=== PATIENT | male | born 1955 | race Caucasian/White ===

== ENCOUNTER 2024-09-23 04:12 | Inpatient (IN) | payer MEDICAID, MEDICARE ==
[2017-02-10 13:00] VITALS: TEMP 97.5
[2024-09-23] VITALS (86 sets, daily range): BP systolic 64–168; BP diastolic 42–132; PULSE 57–129; RESP 9–38; TEMP 36.3–36.7; O2SAT 94–100
[~2024-09-23] VITALS: Ht 177.8 cm; Wt 117.9 kg
[~2024-09-23 04:12] MED LIST: ASPI-1160 PO; LIP40 PO; METO25TA6 PO; XALAO BOTHEYE
[2024-09-23] MEDS: ONDANSETRON HCL 4MG/2ML INJ IV STA (04:29)
[2024-09-23 04:57] LABS: BG BASE EXCESS -2.7 mmol/L (-2.0-3.0); BG CARBOXYHEMOGLOBIN 1.7 % (0.5-1.5); BG DEOXYHEMOGLOBIN 3.1 % (0.0-5.0); BG FRACTION INSPIRED OXYGEN 50; BG HCO3 ACT 22.6 mmol/L (21.0-28.0); BG METHEMOGLOBIN 0.3 % (0.5-1.5); BG OXYGEN SATURATION 96.8 % (94.0-98.0); BG OXYHEMOGLOBIN 94.9 % (94.0-98.0); BG PCO2 41.4 mmHg (35.0-48.0); BG PH 7.355 (7.350-7.450); BG PO2 91.1 mmHg (83.0-108.0); BG SAMPLE SITE RIGHT RADIAL; BG TOTAL HEMOGLOBIN 10.5 g/dL (13.5-17.5); BG VENT MODE MASK - BIPAP; BG VENT RATE 24.0 set
[2024-09-23 05:20] LABS: HEMATOCRIT. 31.3 % (42.0-52.0); HEMOGLOBIN. 9.4 g/dL (14.0-18.0); MEAN PLATELET VOLUME 8.0 fl (7.4-10.4); PLATELET 194 x1000/uL (130-400); RED BLOOD CELL COUNT 3.69 mill/uL (4.7-6.1); RED CELL DISTRIBUTION WIDTH 20.8 % (11.6-14.6)
[2024-09-23 05:56] LABS: UREA NITROGEN BLOOD 38 mg/dL (9-23)
[2024-09-23 06:01] LABS: CREATININE 6.0 mg/dL (0.6-1.3)
[2024-09-23 06:02] LABS: TROPONIN I HIGH SENSITIVITY 84 ng/L (3.0-53)
[2024-09-23 06:03] LABS: LACTIC ACID 2.2 mmol/L (0.4-2.0)
[2024-09-23 07:17] LABS: TROPONIN I HIGH SENSITIVITY 82 ng/L (3.0-53)
[2024-09-23] MEDS: MIDODRINE HCL 5MG TABLET PO SCH (08:30)
[2024-09-23] MEDS ORDERED: ENOXAPARIN 40MG/0.4ML SYR SUBCUT SCH (08:45)
[2024-09-23] MEDS ORDERED: HYDRALAZINE 20MG/ML VIAL IV PRN (08:45)
[2024-09-23] MEDS ORDERED: GUAIFENESIN 200MG/10ML SUGAR FREE UDC PO PRN (08:45)
[2024-09-23] MEDS ORDERED: ACETAMINOPHEN 325MG TABLET PO PRN (08:45)
[2024-09-23] MEDS ORDERED: CLONIDINE 0.1MG TABLET PO PRN (08:45)
[2024-09-23] MEDS ORDERED: MAGNESIUM/ALUMINUM HYDROXIDE/SIMETHICONE 30ML UDC PO PRN (08:45)
[2024-09-23] MEDS ORDERED: APIXABAN 2.5 MG TABLET PO SCH (09:00)
[2024-09-23] MEDS ORDERED: ASPIRIN 81MG TABLET PO SCH (09:00)
[2024-09-23 09:14] LABS: BAND% 36.0 % (1.0-6.0); LYMPHOCYTES % MANUAL 3.0 % (20.0-50.0); MONOCYTES % MANUAL 3.0 % (2.0-8.0); NEUTROPHILS % MANUAL 58.0 % (45.0-75.0); PLATELET ESTIMATE NORMAL
[2024-09-23] MEDS: PHENYLEPHRINE 50MG/250ML PMX 250 ML IV PRN (09:32)
[2024-09-23] MEDS: PANTOPRAZOLE SODIUM 40 MG/VIAL IV SCH (11:03)
[2024-09-23] MEDS: SODIUM CHLORIDE 0.9% 250 ML IV ONE (11:04)
[2024-09-23] MEDS ORDERED: PIPERACILLIN/TAZO 3.375G/50ML 50 ML IV SCH (12:00)
[2024-09-23 12:35] LABS: TROPONIN I HIGH SENSITIVITY 85 ng/L (3.0-53)
[2024-09-23] MEDS: METOCLOPRAMIDE HCL 10MG/2ML VIAL IV SCH (13:01)
[2024-09-23] MEDS: PIPERACILLIN/TAZO 3.375G/50ML 50 ML IV SCH (13:02)
[2024-09-23] MEDS: VANCOMYCIN 2GM PMX (XELLIA) 400 ML IV SCH (13:02)
[2024-09-23 14:32] LABS: HEPATITIS A AB IGM NEGATIVE (Negative); HEPATITIS C AB NON REACTIVE (Neg) (Negative)
[2024-09-23 15:48] LABS: HEPATITIS B CORE AB IGM NEGATIVE (Negative)
[2024-09-23] MEDS ORDERED: LACTULOSE 20G/30ML UDC PO SCH (18:15)
[2024-09-23] MEDS ORDERED: DEXMEDETOMIDINE 400 MCG/100 ML 100 ML IV PRN ×2 (19:00→20:30)
[2024-09-23] MEDS: INSULIN LISPRO 100 UNITS/ML SUBCUT SCH (19:00)
[2024-09-23] MEDS ORDERED: BLOOD SUGAR DIAGNOSTIC STRIP TEST SCH ×2 (19:00)
[2024-09-23] MEDS ORDERED: DEXTROSE 50% WATER 50ML SYRINGE IV PRN (19:00)
[2024-09-23] MEDS ORDERED: ACETAMINOPHEN 650MG SUPP PR PRN (19:00)
[2024-09-23] MEDS ORDERED: PHENYLEPHRINE 50 MG in DEXT 5% WATER 245 ML IV PRN (19:15)
[2024-09-23] MEDS: DEXT 5%/0.9% NACL 1,000 ML IV SCH (19:20)
[2024-09-23] MEDS: NOREPINEPHRINE 8MG/250ML PMX 250 ML IV PRN (19:20)
[2024-09-23] MEDS ORDERED: PHENYLEPHRINE 50MG/250ML PMX 250 ML IV PRN ×2 (19:30→19:37)
[2024-09-23] MEDS ORDERED: CEFTRIAXONE 2GM/50ML 50 ML IV SCH (20:15)
[2024-09-23] MEDS ORDERED: VASOPRESSIN 20 UNIT in SODIUM CHLORIDE 0.9% 99 ML IV PRN (20:30)
[2024-09-23 20:33] LABS: HEMATOCRIT. 37.8 % (42.0-52.0); HEMOGLOBIN. 10.8 g/dL (14.0-18.0); MEAN PLATELET VOLUME 8.0 fl (7.4-10.4); PLATELET 102 x1000/uL (130-400); RED BLOOD CELL COUNT 4.27 mill/uL (4.7-6.1); RED CELL DISTRIBUTION WIDTH 21.7 % (11.6-14.6)
[2024-09-23 20:37] LABS: UREA NITROGEN BLOOD 31 mg/dL (9-23)
[2024-09-23 20:39] LABS: PHOSPHORUS 4.5 mg/dL (2.5-4.9)
[2024-09-23 20:45] LABS: CREATININE 5.4 mg/dL (0.6-1.3)
[2024-09-23] MEDS: ATORVASTATIN CALCIUM 10MG TABLET PO SCH (21:00)
[2024-09-23] MEDS: MIDODRINE HCL 5MG TABLET NG SCH (21:00)
[2024-09-23] MEDS ORDERED: LACTULOSE 20G/30ML UDC NG SCH (21:00)
[2024-09-23] MEDS: DEXMEDETOMIDINE 400 MCG/100 ML 100 ML IV PRN (21:05)
[2024-09-23 21:17] LABS: BAND% 26.0 % (1.0-6.0); LYMPHOCYTES % MANUAL 5.0 % (20.0-50.0); MONOCYTES % MANUAL 2.0 % (2.0-8.0); NEUTROPHILS % MANUAL 67.0 % (45.0-75.0); NUCLEATED RED BLOOD CELLS 1 /100 WBC
[2024-09-23 21:18] LABS: PLATELET ESTIMATE DECREASED
[2024-09-23] MEDS: FENTANYL CITRATE/PF 50MCG/ML 2ML VIAL IV SCH (21:31)
[2024-09-23] MEDS: VASOPRESSIN 20 UNIT in SODIUM CHLORIDE 0.9% 99 ML IV PRN (21:33)
[2024-09-23 23:02] LABS: BG BASE EXCESS -15.4 mmol/L (-2.0-3.0); BG CARBOXYHEMOGLOBIN 1.2 % (0.5-1.5); BG DEOXYHEMOGLOBIN 0.3 % (0.0-5.0); BG FRACTION INSPIRED OXYGEN 100; BG HCO3 ACT 12.9 mmol/L (21.0-28.0); BG METHEMOGLOBIN 0.3 % (0.5-1.5); BG OXYGEN SATURATION 99.7 % (94.0-98.0); BG OXYHEMOGLOBIN 98.2 % (94.0-98.0); BG PCO2 39.5 mmHg (35.0-48.0); BG PEEP (cmH2O) 5.0 cmH2O; BG PH 7.132 (7.350-7.450); BG PO2 354.3 mmHg (83.0-108.0); BG SAMPLE SITE ALINE; BG TIDAL VOLUME(mL) 500.0 mL; BG TOTAL HEMOGLOBIN 11.9 g/dL (13.5-17.5); BG VENT MODE VENT - AC; BG VENT RATE 20.0 set
[2024-09-24] VITALS (105 sets, daily range): BP systolic 112–148; BP diastolic 47–63; PULSE 69–135; RESP 16–45; TEMP 35–36.6696; O2SAT 75–100
[2024-09-24] MEDS: NOREPINEPHRINE 32 MG in DEXT 5% WATER 218 ML IV PRN (00:30)
[2024-09-24] MEDS: PHENYLEPHRINE 100 MG in DEXT 5% WATER 240 ML IV PRN (00:31)
[2024-09-24] MEDS: FENTANYL 2500MCG/250ML PMX 250 ML IV PRN (00:35)
[2024-09-24] MEDS: PANTOPRAZOLE SODIUM 40 MG/VIAL IV SCH ×2 (00:36→09:00)
[2024-09-24] MEDS: DEXTROSE 50% WATER 50ML SYRINGE IV PRN (00:52)
[2024-09-24] MEDS: LACTULOSE 20G/30ML UDC PO SCH ×2 (03:48→15:31)
[2024-09-24] MEDS: ACETAMINOPHEN 650MG/20.3ML UDC NG PRN (04:12)
[2024-09-24] MEDS: DEXT 10% WATER 1,000 ML IV SCH ×2 (05:32→11:13)
[2024-09-24 06:04] LABS: LACTIC ACID 6.8 mmol/L (0.4-2.0)
[2024-09-24 06:13] LABS: LDL CHOLESTEROL 9 mg/dL (5-100); TRIGLYCERIDE 150 mg/dL (0-150)
[2024-09-24 06:14] LABS: ASPARTATE AMINOTRANSFERASE 328 IU/L (<34); BILIRUBIN DIRECT 0.9 mg/dL (<=3.0); LACTATE DEHYDROGENASE 562 IU/L (120-246)
[2024-09-24 06:15] LABS: BILIRUBIN TOTAL 1.2 mg/dL (0.1-1.0); PROTEIN TOTAL 6.5 g/dL (6.0-8.3)
[2024-09-24 06:16] LABS: T4 FREE 0.92 ng/dL (0.89-1.76)
[2024-09-24] MEDS: BLOOD SUGAR DIAGNOSTIC STRIP TEST SCH ×5 (06:53→11:13)
[2024-09-24] MEDS: SODIUM BICARBONATE 8.4% 50MEQ/50ML SYR IV SCH ×3 (08:30→10:48)
[2024-09-24] MEDS ORDERED: PANTOPRAZOLE SODIUM 40 MG/VIAL IV SCH (09:00)
[2024-09-24] MEDS ORDERED: SODIUM BICARBONATE 8.4% 50MEQ/50ML SYR IV SCH (09:00)
[2024-09-24 09:04] LABS: HEMATOCRIT. 35.7 % (42.0-52.0); HEMOGLOBIN. 10.5 g/dL (14.0-18.0); MEAN PLATELET VOLUME 9.0 fl (7.4-10.4); PLATELET 69 x1000/uL (130-400); RED BLOOD CELL COUNT 4.14 mill/uL (4.7-6.1); RED CELL DISTRIBUTION WIDTH 21.2 % (11.6-14.6)
[2024-09-24 09:26] LABS: TRIGLYCERIDE 145 mg/dL (0-150); UREA NITROGEN BLOOD 40 mg/dL (9-23)
[2024-09-24 09:27] LABS: LDL CHOLESTEROL 9 mg/dL (5-100)
[2024-09-24 09:28] LABS: PHOSPHORUS 5.2 mg/dL (2.5-4.9); T4 FREE 0.95 ng/dL (0.89-1.76)
[2024-09-24 09:29] LABS: BILIRUBIN TOTAL 1.2 mg/dL (0.1-1.0)
[2024-09-24 09:32] LABS: CREATININE 5.7 mg/dL (0.6-1.3)
[2024-09-24 09:34] LABS: INR 3.4
[2024-09-24 10:13] LABS: BAND% 40.0 % (1.0-6.0); LYMPHOCYTES % MANUAL 4.0 % (20.0-50.0); MONOCYTES % MANUAL 6.0 % (2.0-8.0); NEUTROPHILS % MANUAL 50.0 % (45.0-75.0)
[2024-09-24 10:14] LABS: PLATELET ESTIMATE DECREASED
[2024-09-24] MEDS: CALCIUM CHLORIDE 1GM/10ML SYR IV SCH (10:50)
[2024-09-24] MEDS: SODIUM BICARBONATE 100 MEQ in DEXTROSE 5% WATER 900 ML IV SCH (11:12)
[2024-09-24] MEDS: PHYTONADIONE 10MG/ML INJ SUBCUT SCH (11:27)
[2024-09-24] MEDS ORDERED: METOPROLOL TARTRATE 5MG/5ML VIAL IV SCH (11:30)
[2024-09-24] MEDS ORDERED: CEFTRIAXONE 2GM/50ML 50 ML IV SCH (12:00)
[2024-09-24] MEDS: ACETAMINOPHEN 325MG TABLET PO SCH (13:02)
[2024-09-24] MEDS: SEVELAMER CARBONATE 800 MG TABLET PO SCH (13:02)
[2024-09-24 13:34] LABS: BG BASE EXCESS -16.6 mmol/L (-2.0-3.0); BG CARBOXYHEMOGLOBIN 1.0 % (0.5-1.5); BG DEOXYHEMOGLOBIN 0.3 % (0.0-5.0); BG FRACTION INSPIRED OXYGEN 100; BG HCO3 ACT 11.7 mmol/L (21.0-28.0); BG METHEMOGLOBIN 0.3 % (0.5-1.5); BG OXYGEN SATURATION 99.7 % (94.0-98.0); BG OXYHEMOGLOBIN 98.4 % (94.0-98.0); BG PCO2 36.6 mmHg (35.0-48.0); BG PEEP (cmH2O) 5.0 cmH2O; BG PH 7.123 (7.350-7.450); BG PO2 422.4 mmHg (83.0-108.0); BG TIDAL VOLUME(mL) 500.0 mL; BG TOTAL HEMOGLOBIN 11.3 g/dL (13.5-17.5); BG VENT MODE VENT - AC; BG VENT RATE 16.0 set
[2024-09-24] MEDS ORDERED: MEROPENEM 500MG/50ML IV SCH (14:00)
[2024-09-24] MEDS ORDERED: PIPERACILLIN/TAZO 3.375G/50ML 50 ML IV SCH (14:00)
[2024-09-24] MEDS ORDERED: MEROPENEM 1G/100ML 100 ML IV SCH (14:00)
[2024-09-24 14:29] LABS: TROPONIN I HIGH SENSITIVITY 3314.0 ng/L (3.0-53)
[2024-09-24] MEDS: ALBUTEROL (0.083%) 2.5MG/3ML NEB HHN SCH (14:42)
[2024-09-24] MEDS: AMIKACIN SULFATE 500 MG in SODIUM CHLORIDE 0.9% 100 ML IV SCH (15:31)
[2024-09-24] MEDS: MEROPENEM 1G/100ML 100 ML IV SCH (15:31)
[2024-09-24] MEDS: LACTOBACILLUS RHAMNOSUS GG CAP NG SCH (15:34)
[2024-09-24] MEDS: SODIUM BICARBONATE 100 MEQ in DEXT 5%/0.9% NACL 900 ML IV ONE (17:18)
[2024-09-24 17:26] LABS: PROTEIN BODY FLUID 4.8 gm/dL
[2024-09-24 17:37] LABS: BODY FLUID MONOCYTES 4 %
[2024-09-24 17:38] LABS: BODY FLUID RBC 1083 /cu mm (0-2000); BODY FLUID WBC 585 /cu mm (0-200)
[2024-09-24] MEDS: ALBUMIN HUMAN 25GM/100ML (25%) IV NR ×2 (18:24)
[2024-09-24 21:12] LABS: CREATINE KINASE MB FRACTION 68.6 ng/mL (0.5-3.6)
[2024-09-24 21:19] LABS: TROPONIN I HIGH SENSITIVITY 4521.0 ng/L (3.0-53)
[2024-09-25] VITALS (109 sets, daily range): BP systolic 142; BP diastolic 50; PULSE 84–133; RESP 13–48; TEMP 36.3–38.6; O2SAT 94–100
[2024-09-25 00:26] LABS: HEMATOCRIT. 31.0 % (42.0-52.0); HEMOGLOBIN. 9.5 g/dL (14.0-18.0); MEAN PLATELET VOLUME 8.5 fl (7.4-10.4); RED BLOOD CELL COUNT 3.71 mill/uL (4.7-6.1); RED CELL DISTRIBUTION WIDTH 20.8 % (11.6-14.6)
[2024-09-25] MEDS: BLOOD SUGAR DIAGNOSTIC STRIP TEST SCH (00:30)
[2024-09-25 00:32] LABS: BG BASE EXCESS -8.3 mmol/L (-2.0-3.0); BG CARBOXYHEMOGLOBIN 0.2 % (0.5-1.5); BG DEOXYHEMOGLOBIN 0.0 % (0.0-5.0); BG FRACTION INSPIRED OXYGEN 100; BG HCO3 ACT 17.6 mmol/L (21.0-28.0); BG METHEMOGLOBIN 0.3 % (0.5-1.5); BG OXYGEN SATURATION 100.0 % (94.0-98.0); BG OXYHEMOGLOBIN 99.5 % (94.0-98.0); BG PCO2 37.6 mmHg (35.0-48.0); BG PEEP (cmH2O) 5.0 cmH2O; BG PH 7.289 (7.350-7.450); BG PO2 314.2 mmHg (83.0-108.0); BG SAMPLE SITE ALINE; BG TIDAL VOLUME(mL) 500.0 mL; BG TOTAL HEMOGLOBIN 10.5 g/dL (13.5-17.5); BG VENT MODE VENT - AC; BG VENT RATE 22.0 set
[2024-09-25 00:32] LABS: PLATELET 33 x1000/uL (130-400)
[2024-09-25 00:36] LABS: UREA NITROGEN BLOOD 26 mg/dL (9-23)
[2024-09-25 00:37] LABS: CREATINE KINASE MB FRACTION 81.8 ng/mL (0.5-3.6)
[2024-09-25 00:38] LABS: PHOSPHORUS 3.4 mg/dL (2.5-4.9)
[2024-09-25 01:14] LABS: CREATININE 3.4 mg/dL (0.6-1.3)
[2024-09-25 01:24] LABS: TROPONIN I HIGH SENSITIVITY 4272.0 ng/L (3.0-53)
[2024-09-25 04:52] LABS: HEMATOCRIT. 31.9 % (42.0-52.0); HEMOGLOBIN. 9.6 g/dL (14.0-18.0); MEAN PLATELET VOLUME 8.6 fl (7.4-10.4); RED BLOOD CELL COUNT 3.77 mill/uL (4.7-6.1); RED CELL DISTRIBUTION WIDTH 21.1 % (11.6-14.6)
[2024-09-25 05:11] LABS: CREATININE 3.8 mg/dL (0.6-1.3)
[2024-09-25 05:12] LABS: LACTIC ACID 10.9 mmol/L (0.4-2.0)
[2024-09-25 05:13] LABS: CREATINE KINASE MB FRACTION 96.8 ng/mL (0.5-3.6); UREA NITROGEN BLOOD 29 mg/dL (9-23)
[2024-09-25 05:15] LABS: PHOSPHORUS 3.2 mg/dL (2.5-4.9)
[2024-09-25 05:20] LABS: TROPONIN I HIGH SENSITIVITY 4479.0 ng/L (3.0-53)
[2024-09-25] MEDS: DEXTROSE 50% WATER 50ML SYRINGE IV ONE (08:24)
[2024-09-25 10:53] LABS: BG BASE EXCESS -10.9 mmol/L (-2.0-3.0); BG CARBOXYHEMOGLOBIN 0.3 % (0.5-1.5); BG DEOXYHEMOGLOBIN 1.7 % (0.0-5.0); BG FRACTION INSPIRED OXYGEN 50; BG HCO3 ACT 15.4 mmol/L (21.0-28.0); BG METHEMOGLOBIN 0.3 % (0.5-1.5); BG OXYGEN SATURATION 98.3 % (94.0-98.0); BG OXYHEMOGLOBIN 97.7 % (94.0-98.0); BG PCO2 35.9 mmHg (35.0-48.0); BG PEEP (cmH2O) 5.0 cmH2O; BG PH 7.250 (7.350-7.450); BG PO2 123.8 mmHg (83.0-108.0); BG SAMPLE SITE ALINE; BG TIDAL VOLUME(mL) 500.0 mL; BG TOTAL HEMOGLOBIN 10.2 g/dL (13.5-17.5); BG VENT MODE VENT - AC; BG VENT RATE 22.0 set
[2024-09-25] MEDS: MAGNESIUM 2 G PREMIX 50 ML IV SCH (11:12)
[2024-09-25] MEDS: AMIODARONE 360MG/200ML 200 ML IV SCH (11:13)
[2024-09-25 14:10] LABS: BAND% 50.0 % (1.0-6.0); LYMPHOCYTES % MANUAL 1.0 % (20.0-50.0); METAMYELOCYTES % 8.0 % (0-0); MONOCYTES % MANUAL 6.0 % (2.0-8.0); MYELOCYTES % 1.0 % (0-0); NEUTROPHILS % MANUAL 34.0 % (45.0-75.0); NUCLEATED RED BLOOD CELLS 2 /100 WBC
[2024-09-25 14:11] LABS: PLATELET ESTIMATE MARKEDLY DECREASED
[2024-09-25 14:12] LABS: PLATELET 29 x1000/uL (130-400)
[2024-09-25 14:48] LABS: LYMPHOCYTES % MANUAL 3.0 % (20.0-50.0); MONOCYTES % MANUAL 4.0 % (2.0-8.0); NEUTROPHILS % MANUAL 93.0 % (45.0-75.0); NUCLEATED RED BLOOD CELLS 7 /100 WBC
[2024-09-25 14:49] LABS: PLATELET ESTIMATE DECREASED
[2024-09-25] MEDS: MEROPENEM 500MG/50ML 50 ML IV SCH (15:13)
[2024-09-25 18:29] LABS: INFLUENZA TYPE A Presumptive Negative (Pres. Neg.)
[2024-09-25 18:30] LABS: INFLUENZA TYPE B Presumptive Negative (Pres. Neg.)
[2024-09-25 18:31] LABS: RESPIRATORY SYNCYTIAL VIRUS Not Detected (Not Detectd)
[2024-09-25] MEDS: SODIUM BICARBONATE 150 MEQ in DEXTROSE 5% WATER 850 ML IV SCH (18:37)
[2024-09-25] MEDS: ACETAMINOPHEN 325MG TABLET PO PRN (21:40)
[2024-09-26] VITALS (102 sets, daily range): BP systolic 91–146; BP diastolic 46–66; PULSE 77–142; RESP 14–33; TEMP 36.55848–38.7; O2SAT 10–100
[2024-09-26 05:42] LABS: HEMATOCRIT. 28.1 % (42.0-52.0); HEMOGLOBIN. 8.9 g/dL (14.0-18.0); MEAN PLATELET VOLUME 10.1 fl (7.4-10.4); RED BLOOD CELL COUNT 3.48 mill/uL (4.7-6.1); RED CELL DISTRIBUTION WIDTH 21.1 % (11.6-14.6)
[2024-09-26] MEDS: MIDODRINE HCL 5MG TABLET PO SCH (05:44)
[2024-09-26 05:56] LABS: INR 2.0
[2024-09-26 06:03] LABS: CREATININE 4.1 mg/dL (0.6-1.3); UREA NITROGEN BLOOD 34 mg/dL (9-23)
[2024-09-26 06:04] LABS: ASPARTATE AMINOTRANSFERASE > 1000 IU/L (<34)
[2024-09-26 06:05] LABS: BILIRUBIN TOTAL 2.9 mg/dL (0.1-1.0); PROTEIN TOTAL 4.8 g/dL (6.0-8.3)
[2024-09-26 06:15] LABS: PLATELET 19 x1000/uL (130-400)
[2024-09-26] MEDS: INSULIN LISPRO 100 UNITS/ML SUBCUT SCH (06:20)
[2024-09-26] MEDS: BLOOD SUGAR DIAGNOSTIC STRIP TEST SCH ×2 (06:21→16:14)
[2024-09-26 08:47] LABS: BG BASE EXCESS -4.7 mmol/L (-2.0-3.0); BG CARBOXYHEMOGLOBIN 1.3 % (0.5-1.5); BG DEOXYHEMOGLOBIN 1.5 % (0.0-5.0); BG FRACTION INSPIRED OXYGEN 40; BG HCO3 ACT 19.8 mmol/L (21.0-28.0); BG METHEMOGLOBIN 0.3 % (0.5-1.5); BG OXYGEN SATURATION 98.5 % (94.0-98.0); BG OXYHEMOGLOBIN 96.9 % (94.0-98.0); BG PCO2 34.1 mmHg (35.0-48.0); BG PEEP (cmH2O) 5.0 cmH2O; BG PH 7.381 (7.350-7.450); BG PO2 114.0 mmHg (83.0-108.0); BG SAMPLE SITE ALINE; BG TIDAL VOLUME(mL) 500.0 mL; BG TOTAL HEMOGLOBIN 9.4 g/dL (13.5-17.5); BG TOTAL RESPIRATORY RATE 23 b/min; BG VENT MODE VENT - AC; BG VENT RATE 22.0 set
[2024-09-26] MEDS ORDERED: PIPERACILLIN/TAZO 3.375G/50ML 50 ML IV SCH (09:00)
[2024-09-26] MEDS: QUETIAPINE FUMARATE 50MG TABLET PO SCH (09:04)
[2024-09-26 09:55] LABS: BAND% 38.0 % (1.0-6.0); LYMPHOCYTES % MANUAL 2.0 % (20.0-50.0); METAMYELOCYTES % 11.0 % (0-0); MONOCYTES % MANUAL 3.0 % (2.0-8.0); NEUTROPHILS % MANUAL 46.0 % (45.0-75.0); NUCLEATED RED BLOOD CELLS 1 /100 WBC
[2024-09-26 09:56] LABS: PLATELET ESTIMATE MARKEDLY DECREASED
[2024-09-26] MEDS: CEFAZOLIN 1000MG PREMIX 50 ML IV SCH (15:38)
[2024-09-26] MEDS: AMIODARONE 360MG/200ML 200 ML IV SCH (15:38)
[2024-09-26] MEDS ORDERED: VANCOMYCIN 500MG PREMIX 100 ML IV SCH (21:00)
[2024-09-27] VITALS (100 sets, daily range): BP systolic 82–127; BP diastolic 45–75; PULSE 74–107; RESP 18–29; TEMP 36.3–38.9; O2SAT 91–100
[2024-09-27 05:28] LABS: HEMATOCRIT. 26.3 % (42.0-52.0); HEMOGLOBIN. 8.5 g/dL (14.0-18.0); MEAN PLATELET VOLUME 11.2 fl (7.4-10.4); RED BLOOD CELL COUNT 3.31 mill/uL (4.7-6.1); RED CELL DISTRIBUTION WIDTH 20.5 % (11.6-14.6)
[2024-09-27 05:32] LABS: CREATININE 3.5 mg/dL (0.6-1.3); UREA NITROGEN BLOOD 29 mg/dL (9-23)
[2024-09-27 05:34] LABS: ASPARTATE AMINOTRANSFERASE 934 IU/L (<34); BILIRUBIN DIRECT 2.9 mg/dL (<=3.0); BILIRUBIN TOTAL 3.7 mg/dL (0.1-1.0); PROTEIN TOTAL 4.8 g/dL (6.0-8.3)
[2024-09-27 05:47] LABS: INR 1.5
[2024-09-27 07:17] LABS: PLATELET 38 x1000/uL (130-400)
[2024-09-27 09:01] LABS: BG BASE EXCESS 0.9 mmol/L (-2.0-3.0); BG CARBOXYHEMOGLOBIN 1.3 % (0.5-1.5); BG DEOXYHEMOGLOBIN 0.9 % (0.0-5.0); BG FRACTION INSPIRED OXYGEN 40; BG HCO3 ACT 23.6 mmol/L (21.0-28.0); BG METHEMOGLOBIN 0.3 % (0.5-1.5); BG OXYGEN SATURATION 99.1 % (94.0-98.0); BG OXYHEMOGLOBIN 97.5 % (94.0-98.0); BG PCO2 31.6 mmHg (35.0-48.0); BG PEEP (cmH2O) 5.0 cmH2O; BG PH 7.491 (7.350-7.450); BG PO2 134.6 mmHg (83.0-108.0); BG SAMPLE SITE ALINE; BG TIDAL VOLUME(mL) 500.0 mL; BG TOTAL HEMOGLOBIN 11.8 g/dL (13.5-17.5); BG VENT MODE VENT - AC; BG VENT RATE 22.0 set
[2024-09-27] MEDS: METOCLOPRAMIDE HCL 10MG/2ML VIAL IV SCH (12:43)
[2024-09-27 13:17] LABS: BAND% 28.0 % (1.0-6.0); LYMPHOCYTES % MANUAL 1.0 % (20.0-50.0); METAMYELOCYTES % 1.0 % (0-0); MONOCYTES % MANUAL 6.0 % (2.0-8.0); NEUTROPHILS % MANUAL 64.0 % (45.0-75.0); NUCLEATED RED BLOOD CELLS 4 /100 WBC
[2024-09-27 13:18] LABS: PLATELET ESTIMATE MARKEDLY DECREASED
[2024-09-28] VITALS (104 sets, daily range): PULSE 76–102; RESP 18–29; TEMP 36.2–37.2; O2SAT 82–100
[2024-09-28 05:42] LABS: HEMATOCRIT. 26.1 % (42.0-52.0); HEMOGLOBIN. 8.4 g/dL (14.0-18.0); RED BLOOD CELL COUNT 3.27 mill/uL (4.7-6.1); RED CELL DISTRIBUTION WIDTH 20.6 % (11.6-14.6)
[2024-09-28 05:56] LABS: CREATININE 3.6 mg/dL (0.6-1.3)
[2024-09-28 05:57] LABS: UREA NITROGEN BLOOD 31 mg/dL (9-23)
[2024-09-28 05:59] LABS: PHOSPHORUS 1.3 mg/dL (2.5-4.9)
[2024-09-28 07:17] LABS: MONOCYTES % MANUAL 7.0 % (2.0-8.0); NEUTROPHILS % MANUAL 93.0 % (45.0-75.0); NUCLEATED RED BLOOD CELLS 1 /100 WBC
[2024-09-28 07:20] LABS: MEAN PLATELET VOLUME 11.1 fl (7.4-10.4)
[2024-09-28 07:21] LABS: PLATELET 31 x1000/uL (130-400); PLATELET ESTIMATE MARKEDLY DECREASED
[2024-09-28 07:26] LABS: LYMPHOCYTES % MANUAL 0.0 % (20.0-50.0)
[2024-09-28] MEDS: POTASSIUM PHOSPHATE 30 MMOL in DEXT 5% WATER 490 ML IV SCH (17:01)
[2024-09-29] VITALS (98 sets, daily range): PULSE 77–115; RESP 18–29; TEMP 36.3–39.3; O2SAT 92–100
[2024-09-29] MEDS ORDERED: DEXTROSE 50% WATER 50ML SYRINGE IV PRN (04:45)
[2024-09-29 04:57] LABS: HEMATOCRIT. 25.7 % (42.0-52.0); HEMOGLOBIN. 8.2 g/dL (14.0-18.0); RED BLOOD CELL COUNT 3.26 mill/uL (4.7-6.1); RED CELL DISTRIBUTION WIDTH 20.2 % (11.6-14.6)
[2024-09-29] MEDS: INSULIN LISPRO 100 UNITS/ML SUBCUT SCH (05:15)
[2024-09-29 05:28] LABS: CREATININE 4.2 mg/dL (0.6-1.3)
[2024-09-29 05:29] LABS: UREA NITROGEN BLOOD 40 mg/dL (9-23)
[2024-09-29 05:30] LABS: ASPARTATE AMINOTRANSFERASE 319 IU/L (<34)
[2024-09-29 05:31] LABS: BILIRUBIN DIRECT 3.6 mg/dL (<=3.0); BILIRUBIN TOTAL 4.6 mg/dL (0.1-1.0); PROTEIN TOTAL 4.8 g/dL (6.0-8.3)
[2024-09-29] MEDS: BLOOD SUGAR DIAGNOSTIC STRIP TEST SCH (06:55)
[2024-09-29 08:18] LABS: BAND% 15.0 % (1.0-6.0); EOSINOPHILS % MANUAL 1.0 % (0.0-5.0); LYMPHOCYTES % MANUAL 7.0 % (20.0-50.0); MONOCYTES % MANUAL 4.0 % (2.0-8.0); NEUTROPHILS % MANUAL 73.0 % (45.0-75.0); NUCLEATED RED BLOOD CELLS 1 /100 WBC
[2024-09-29 08:21] LABS: PLATELET ESTIMATE MARKEDLY DECREASED
[2024-09-29 08:23] LABS: MEAN PLATELET VOLUME 9.1 fl (7.4-10.4)
[2024-09-29 08:25] LABS: PLATELET 29 x1000/uL (130-400)
[2024-09-29] MEDS: IPRATROPIUM/ALBUTEROL 0.5-3(2.5)MG/3ML NEB HHN PRN (12:40)
[2024-09-30] VITALS (100 sets, daily range): BP systolic 92–152; BP diastolic 42–62; PULSE 56–106; RESP 16–27; TEMP 36.114–37.1; O2SAT 92–100
[2024-09-30] MEDS: INSULIN LISPRO 100 UNITS/ML SUBCUT SCH (00:23)
[2024-09-30 05:41] LABS: INR 1.5
[2024-09-30 05:42] LABS: HEMATOCRIT. 26.0 % (42.0-52.0); HEMOGLOBIN. 8.2 g/dL (14.0-18.0); MEAN PLATELET VOLUME 9.2 fl (7.4-10.4); RED BLOOD CELL COUNT 3.29 mill/uL (4.7-6.1); RED CELL DISTRIBUTION WIDTH 21.0 % (11.6-14.6)
[2024-09-30 05:58] LABS: UREA NITROGEN BLOOD 47 mg/dL (9-23)
[2024-09-30 05:59] LABS: CREATININE 4.6 mg/dL (0.6-1.3)
[2024-09-30 06:01] LABS: ASPARTATE AMINOTRANSFERASE 215 IU/L (<34); BILIRUBIN DIRECT 4.2 mg/dL (<=3.0)
[2024-09-30 06:02] LABS: BILIRUBIN TOTAL 5.1 mg/dL (0.1-1.0); PHOSPHORUS 3.7 mg/dL (2.5-4.9); PROTEIN TOTAL 4.9 g/dL (6.0-8.3)
[2024-09-30 06:21] LABS: PLATELET 33 x1000/uL (130-400)
[2024-09-30 07:59] LABS: BAND% 13.0 % (1.0-6.0); LYMPHOCYTES % MANUAL 5.0 % (20.0-50.0); MONOCYTES % MANUAL 4.0 % (2.0-8.0); NEUTROPHILS % MANUAL 78.0 % (45.0-75.0)
[2024-09-30 08:05] LABS: PLATELET ESTIMATE MARKEDLY DECREASED
[2024-09-30] MEDS: MIDODRINE HCL 5MG TABLET PO SCH (08:08)
[2024-09-30] MEDS ORDERED: MORPHINE SULFATE 250 MG in DEXT 5% WATER 240 ML IV PRN (17:30)
[2024-09-30] MEDS: MORPHINE SULFATE 250 MG in DEXT 5% WATER 250 ML IV PRN (18:53)
[2024-10-01] VITALS (62 sets, daily range): BP systolic 119; BP diastolic 47; PULSE 0–97; RESP 0–22; TEMP 36.3–36.9; O2SAT 91–100
[2024-10-01 04:47] LABS: RED BLOOD CELL COUNT 3.46 mill/uL (4.7-6.1); RED CELL DISTRIBUTION WIDTH 21.0 % (11.6-14.6)
[2024-10-01 05:04] LABS: CREATININE 3.8 mg/dL (0.6-1.3); UREA NITROGEN BLOOD 37.0 mg/dL (9-23)
[2024-10-01 07:41] LABS: PLATELET 52 x1000/uL (130-400)
== END 2024-10-01 16:34 | DRG 870 ==
LOC: ER 04:12 → 5EST 04:42 → ENRESERV 06:19 → MICUSO 09:09
PROVIDERS: ADMIT Internal Medicine; ATTEND Internal Medicine
PROC: 5A1955Z Respiratory Ventilation, Greater than 96 Consecutive Hours (ICD-10-PCS; principal; 2024-09-23)
PROC: 0BH17EZ Insertion of Endotracheal Airway into Trachea, Via Natural or Artificial Opening (ICD-10-PCS; 2024-09-23)
PROC: 02HV33Z Insertion of Infusion Device into Superior Vena Cava, Percutaneous Approach (ICD-10-PCS; 2024-09-23)
PROC: B548ZZA Ultrasonography of Superior Vena Cava, Guidance (ICD-10-PCS; 2024-09-23)
PROC: 5A12012 Performance of Cardiac Output, Single, Manual (ICD-10-PCS; 2024-09-23)
PROC: 5A09357 Assistance with Respiratory Ventilation, Less than 24 Consecutive Hours, Continuous Positive Airway Pressure (ICD-10-PCS; 2024-09-23)
PROC: 5A1D70Z Performance of Urinary Filtration, Intermittent, Less than 6 Hours Per Day (ICD-10-PCS; 2024-09-23)
PROC: 04HY32Z Insertion of Monitoring Device into Lower Artery, Percutaneous Approach (ICD-10-PCS; 2024-09-24)
PROC: 0W9G3ZZ Drainage of Peritoneal Cavity, Percutaneous Approach (ICD-10-PCS; 2024-09-24)
PROC: 30233K1 Transfusion of Nonautologous Frozen Plasma into Peripheral Vein, Percutaneous Approach (ICD-10-PCS; 2024-09-24)
PROC: 5A1D70Z Performance of Urinary Filtration, Intermittent, Less than 6 Hours Per Day (ICD-10-PCS; 2024-09-24)
PROC: 30233R1 Transfusion of Nonautologous Platelets into Peripheral Vein, Percutaneous Approach (ICD-10-PCS; 2024-09-26)
PROC: 5A1D70Z Performance of Urinary Filtration, Intermittent, Less than 6 Hours Per Day (ICD-10-PCS; 2024-09-26)
PROC: 5A12012 Performance of Cardiac Output, Single, Manual (ICD-10-PCS; 2024-09-27)
PROC: 5A1D70Z Performance of Urinary Filtration, Intermittent, Less than 6 Hours Per Day (ICD-10-PCS; 2024-09-27)
PROC: 5A1D70Z Performance of Urinary Filtration, Intermittent, Less than 6 Hours Per Day (ICD-10-PCS; 2024-09-30)
DX: A41.01 Sepsis due to Methicillin susceptible Staphylococcus aureus (principal); G93.41 Metabolic encephalopathy; I21.A1 Myocardial infarction type 2; N18.6 End stage renal disease; J96.01 Acute respiratory failure with hypoxia; K72.00 Acute and subacute hepatic failure without coma; R65.21 Severe sepsis with septic shock; I50.43 Acute on chronic combined systolic (congestive) and diastolic (congestive) heart failure; K65.2 Spontaneous bacterial peritonitis; E87.29 Other acidosis; R18.8 Other ascites; E11.52 Type 2 diabetes mellitus with diabetic peripheral angiopathy with gangrene; I13.2 Hypertensive heart and chronic kidney disease with heart failure and with stage 5 chronic kidney disease, or end stage renal disease; I42.9 Cardiomyopathy, unspecified; Z99.11 Dependence on respirator [ventilator] status; Z66 Do not resuscitate; I46.9 Cardiac arrest, cause unspecified; D50.9 Iron deficiency anemia, unspecified; E87.5 Hyperkalemia; I48.0 Paroxysmal atrial fibrillation; E11.22 Type 2 diabetes mellitus with diabetic chronic kidney disease; Z95.1 Presence of aortocoronary bypass graft; I25.10 Atherosclerotic heart disease of native coronary artery without angina pectoris; K74.60 Unspecified cirrhosis of liver; E11.649 Type 2 diabetes mellitus with hypoglycemia without coma; E11.65 Type 2 diabetes mellitus with hyperglycemia; E83.39 Other disorders of phosphorus metabolism; I27.20 Pulmonary hypertension, unspecified; R57.0 Cardiogenic shock; E11.621 Type 2 diabetes mellitus with foot ulcer; L97.519 Non-pressure chronic ulcer of other part of right foot with unspecified severity; E80.6 Other disorders of bilirubin metabolism; D75.829 Heparin-induced thrombocytopenia, unspecified; T45.515A Adverse effect of anticoagulants, initial encounter; Z79.01 Long term (current) use of anticoagulants; Z79.899 Other long term (current) drug therapy; Z95.3 Presence of xenogenic heart valve; Z99.2 Dependence on renal dialysis; Y92.89 Other specified places as the place of occurrence of the external cause
CPT/HCPCS: 31500; 31720; 36415; 36600; 71045; 71275; 74018; 76700; 76705; 80048; 80053; 80061; 80076; 80202; 82040; 82140; 82247; 82375; 82542; 82550; 82553; 82805; 82962; 83036; 83605; 83615; 83735; 83880; 83930; 83986; 84100; 84145; 84439; 84443; 84484; 85014; 85018; 85025; 85027; 85362; 85379; 85384; 86022; 86705; 86709; 86850; 86900; 86927; 87077; 87106; 87186; 87340; 87420; 87804; 90935; 93005; 93306; 93923; 93970; 94002; 94003; 94070; 94640; 94660; 94664; 94760; 99291; A4606; A6261; J0278; J0282; J0690; J0696; J1815; J2185; J2270; J2371; J2405; J2470; J2543; J2765; J3010; J3370; J3430; J3475; J3490; J7042; J7050; J7060; J7070; P9017; P9034; P9047